=== PATIENT | female | born 1980 | race Caucasian/White ===

== ENCOUNTER 2021-04-28 19:41 | Emergency (ER) | payer OTHER ==
[2021-04-28 19:48] VITALS: BP 146/95
[2021-04-28] MEDS ORDERED: KETOROLAC 60 MG/2 ML VIAL IM STA (20:14)
[2021-04-28] MEDS ORDERED: BACITRACIN ZINC OINT 1 PACKET TOP STA (20:14)
--- NOTE | 2021-04-28 20:17 | ED Physician Documentation ---
History of Present Illness - Stated complaint Stated Complaint: FORK IN LT HAND - Chief complaint Chief Complaint: Laceration - Additonal information Additional information: 40-year-old female presents emergency department for evaluation of a fork impaling her left wrist. She was unloading a clean sales store checker when one of the tines of the fork accidentally impaled her left wrist ulnar side. Tetanus is up-to-date Review of Systems Constitutional: denies: Fever, Chills Eyes: reports: Reviewed and negative Nose: reports: Reviewed and negative Throat: reports: Reviewed and negative Cardiac: reports: Reviewed and negative Respiratory: reports: Reviewed and negative GI: reports: Reviewed and negative : reports: Reviewed and negative Skin: reports: Other (Fork impaling left wrist) Musculoskeletal: reports: Reviewed and negative Neurologic: reports: Reviewed and negative PD PAST MEDICAL HISTORY - Allergies Allergies/Adverse Reactions: Allergies Allergy/AdvReac Type Severity Reaction Status Date / Time No Known Drug Allergies Allergy Verified 04/28/21 19:46 PD ED PE EXPANDED - General General: Alert, In Pain - Extremities Extremities: Left wrist (Single time of an intact fork is seen impaling the left wrist on the ulnar side. Minimal bleeding. Patient is able to make a full fist. 2+ radial and 1+ ulnar pulse intact. Brisk cap refill distally), Other (Tying of the fork was easily removed by simply pulling) Results - Vitals Vitals: Vital Signs - 24 hr 04/28/21 19:46 Temperature 36.5 C Heart Rate 89 Respiratory 16 Rate Blood Pressure 146/95 H O2 Saturation 98 Oxygen O2 Source Room air PD MEDICAL DECISION MAKING - ED course Complexity details: d/w patient ED course: 40-year-old female presented to the emergency department with a fork impaling her left wrist that occurred when she was unloading a clean sales store checker. The fork was easily removed simply by pulling on it. Following the removal of the fork/time the examination of the wrist is unremarkable with normal flexion extension. Normal grasp of the hand. No evidence of tendon injury. The puncture wound was thoroughly irrigated with saline. Bacitracin applied. Patient's tetanus is up-to-date. Routine wound care for puncture was discussed emergent return precautions discussed Departure - Departure Disposition: 01 Home, Self Care Clinical Impression: Puncture wound Condition: Stable Record reviewed to determine appropriate education?: Yes Instructions: ED Wound Puncture General Comments: Rosemarie a we were able to easily remove the fork from your wrist. There does not appear to be any tendon or vascular injury. Your tetanus is up-to-date. In general we do not close puncture wounds. I do recommend that you do wash the wound with warm soap and water and apply any antibiotic ointment such as bacitracin or Neosporin and simply cover with a bandage. If you have any concerns of infection such as fevers, redness increased pain or milky drainage then please return immediately to the ER for second look
== END 2021-04-28 20:30 | disposition home or self-care (01) ==
LOC: ED 19:41
DX: S61.542A Puncture wound with foreign body of left wrist, initial encounter (principal); W45.8XXA Other foreign body or object entering through skin, initial encounter; W22.8XXA Striking against or struck by other objects, initial encounter; Y93.G1 Activity, food preparation and clean up; Y92.000 Kitchen of unspecified non-institutional (private) residence as the place of occurrence of the external cause
CPT/HCPCS: 96372; 99282; 99283; A9270

== ENCOUNTER 2024-02-21 18:42 | Emergency (ER) | payer OTHER ==
[2024-02-21 18:53] VITALS: BP 140/80
[2024-02-21 22:05] VITALS: O2SAT 100
--- NOTE | 2024-03-05 17:13 | ED Physician Documentation ---
History of Present Illness - Stated complaint Stated Complaint: LT THUMB LAC - Chief complaint Chief Complaint: Laceration - Additonal information Additional information: Kanika is a 43 yo f presenting to the ED with laceration to left thumb while cleaning a knife. she is not on blood thinners and is right handed. No numbness or tingling reported. Kanika is UTD on her tetanus. PD PAST MEDICAL HISTORY - Past Medical History Past Medical History: Yes Psych: Anxiety - Past Surgical History Past Surgical History: Yes - Allergies Allergies/Adverse Reactions: Allergies Allergy/AdvReac Type Severity Reaction Status Date / Time No Known Drug Allergies Allergy Verified 02/21/24 18:45 - Social History Does the pt smoke?: No Smoking Status: Never smoker Does the pt drink ETOH?: No Does the pt have substance abuse?: No - Immunizations Immunizations are current?: Yes - POLST Patient has POLST: No PD ED PE NORMAL - Vitals Vital signs reviewed: Yes - General General: Alert and oriented X 3 - HEENT HEENT: Atraumatic - Neck Neck: Supple, no meningeal sign - Cardiac Cardiac: RRR, No murmur, No gallop, No rub - Respiratory Respiratory: No respiratory distress, Clear bilaterally - Derm Derm: Normal color, Other (Left thumb shows laceration approximately 2 cm in size across DIP joint. No involvement of the nail. no swelling redness or warmth. No signs of contamination. Decreased ROM over DIP most likely due to pain. Normal sensation intact. Full ROM at PIP) Results - Vitals Vitals: Oxygen O2 Source Room air Procedures - Laceration (location) laceration of left thumb Wound type: Linear Neurovascular status: Sensory intact, Motor intact (Mild decreased ROM over DIP) Tendon involvement: Other (COuld be secondary to pain with decreased ROM over DIP) Anesthesia: Lidocaine 2% Wound preparation: Irrigated copiously NS Skin layer closure: Nylon (5), Size #-0 - enter number (5-0), Sutures - enter # (5) Other: Patient tolerated well, No complications, Neurovascular intact, Tetanus UTD PD Medical Decision Making - ED course Complexity details: reviewed results, re-evaluated patient ED course: Patient presents shortly after laceration to left distal thumb. No signs of contamination or swelling. Decreased ROM over DIP on exam. However good capillary refill and sensation intact. Patient had 5 sutures placed see procedure note above. Tetanus was up to date. Patient given strict return precautions. Departure - Departure Disposition: 01 Home, Self Care Clinical Impression: Laceration of left thumb without complication Condition: Good Instructions: ED Laceration All Comments: You were seen here in the emergency department for your left thumb laceration your workup here showed decreased range of motion could be secondary to pain or possible tendon involvement I would recommend close follow-up with your PCP in the outpatient setting. Please have sutures removed in 14 days. You had 5 sutu res placed. If you develop any redness warmth fevers chills swelling discoloration discharge from the wound return to the emergency department. Forms: PCP List Discharge Date/Time: 02/21/24 22:00
== END 2024-02-21 22:00 | disposition home or self-care (01) ==
LOC: ED 18:42
DX: S61.012A Laceration without foreign body of left thumb without damage to nail, initial encounter (principal); W26.0XXA Contact with knife, initial encounter
CPT/HCPCS: 12001; 99283